=== PATIENT | male | born 1955 | race Caucasian/White ===

== ENCOUNTER 2016-12-05 10:39 | Inpatient (IN) | payer OTHER ==
[~2016-12-05] VITALS: Ht 170.2 cm; Wt 85.0 kg
[~2016-12-05 10:39] MED LIST: no home meds
[2016-12-05] MEDS ORDERED: SOD CHLORIDE 0.9% 1,000 ML IV STA (11:30)
[2016-12-05] MEDS ORDERED: ASPIRIN 325 MG TAB PO STA (11:30)
[2016-12-05] MEDS ORDERED: IBUP-1542 PO (11:34)
[2016-12-05] MEDS ORDERED: OMEP40CA6 PO (11:34)
[2016-12-05 12:26] LABS: ADD SCAN DIFF NO
[2016-12-05 12:40] LABS: BASOPHIL # 0.1 10^3/ul (0.0-0.1); BASOPHILS % 0.9 % (0.0-2.0); EOSINOPHILS # 0.1 10^3/ul (0.0-0.5); EOSINOPHILS % 2.2 % (0.0-7.0); HEMATOCRIT 45.2 % (42.0-52.0); LYMPHOCYTES # 1.9 10^3/ul (0.8-2.9); LYMPHOCYTES % 34.9 % (15.0-51.0); MEAN CORPUSCULAR HEMOGLOBIN 29.1 pg (29.0-33.0); MEAN CORPUSCULAR HGB CONC 33.2 g/dl (32.0-37.0); MEAN CORPUSCULAR VOLUME 87.6 fl (82.0-101.0); MEAN PLATELET VOLUME 11.8 fl (7.4-10.4); MONOCYTE # 0.5 10^3/ul (0.3-0.9); MONOCYTES % 8.3 % (0.0-11.0); NEUTROPHIL # 2.9 10^3/ul (1.6-7.5); NEUTROPHILS % 53.1 % (39.0-77.0); PLATELET COUNT 167 10^3/UL (140-415); RED BLOOD COUNT 5.16 10^6/ul (4.70-6.10); RED CELL DISTRIBUTION WIDTH 13.1 % (11.5-14.5); WHITE BLOOD COUNT 5.4 10^3/ul (4.8-10.8)
[2016-12-05 12:43] LABS: ALBUMIN 4.2 g/dl (3.3-4.9); INR 0.84; PROTIME 11.5 Sec (12.2-14.2); PT RATIO 0.9
[2016-12-05 12:44] LABS: CHLORIDE 104 mmol/L (97-110); PARTIAL THROMBOPLASTIN TIME 24.9 Sec (25.0-35.0); POTASSIUM 4.7 mmol/L (3.5-5.1); SODIUM 144 mmol/L (135-144)
[2016-12-05 12:46] LABS: ANION GAP 19 (8-16); ASPARTATE AMINO TRANSFERASE 36 IU/L (15-46); BILIRUBIN,INDIRECT 1.1 mg/dl (0-1.1); BILIRUBIN,TOTAL 1.1 mg/dl (0.2-1.3); CARBON DIOXIDE 26 mmol/L (21-31); CREATININE 0.77 mg/dl (0.61-1.24); D-DIMER 513.11 ng/ml (<460)
[2016-12-05 12:47] LABS: ALANINE AMINOTRANSFERASE 45 IU/L (13-69); ALBUMIN/GLOBULIN RATIO 1.05; ALKALINE PHOSPHATASE 92 IU/L (42-121); BLOOD UREA NITROGEN 15 mg/dl (7-20); CALCIUM 9.5 mg/dl (8.4-10.2); CREATINE KINASE 105 IU/L (23-200); GLUCOSE 103 mg/dl (70-220); TOTAL PROTEIN 8.2 g/dl (6.1-8.1)
--- NOTE | 2016-12-05 12:48 | ERA ---
ER Documentation Chief Complaint Date/Time DATE: 12/05/16 TIME: 12:37 Chief Complaint has chest discomfort and left arm pain numbness HPI This is a 60-year-old male with no past medical history that presents to the emergency department complaining of 2 weeks of mild shortness of breath and chest discomfort. Indicates that the chest pain is a pressure-like sensation that will last for several minutes and then spontaneously resolved. Yesterday evening he stated that the chest pain worsened to 10 out of 10 in intensity with radiation to his left arm. The pain lasted for roughly 30 minutes and improved however upon awakening this morning he had recurrence of the chest discomfort. He had associated symptoms of nausea but no diaphoresis hemoptysis or hematemesis. His mother had a myocardial infarction at roughly 40 years of age. He denies any swelling of his lower extremity. He states the shortness of breath is present with exertion. He denies any recent travel or prolonged immobilization. ROS All systems reviewed and are negative except as per history of present illness. Medications Home Meds Reported Medications Ibuprofen* (Motrin*) 600 Mg Tab, 600 MG PO Q8H Y for PAIN, TAB 12/05/16 Omeprazole* (Omeprazole*) 40 Mg Capsule.dr, 40 MG PO DAILY, #30 CAP 12/05/16 Discontinued Reported Medications [no home meds] No Conflict Check 09/14/14 Allergies Allergies: Coded Allergies: No Known Allergy (Unverified , 12/05/16) PMhx/Soc Medical and Surgical Hx: pt denies Medical Hx History of Surgery: Yes (HERNIA) Anesthesia Reaction: No Hx Neurological Disorder: No Hx Respiratory Disorders: No Hx Cardiac Disorders: No Hx Psychiatric Problems: No Hx Miscellaneous Medical Probl: Yes (GERD) Hx Alcohol Use: No Hx Substance Use: No Hx Tobacco Use: No Smoking Status: Former smoker Physical Exam Vitals Vital Signs Date Time Temp Pulse Resp B/P Pulse Ox O2 Delivery O2 Flow Rate FiO2 12/05/16 11:45 98.5 54 15 142/102 Room Air 12/05/16 10:47 97.5 66 18 181/87 98 Physical Exam Constitutional:Well-developed. Well-nourished. HEENT:Normocephalic. Atraumatic.Pupils were equal round reactive to light. Moist mucous membranes.No tonsillar exudates. Neck: No nuchal rigidity. No lymphadenopathy. No posterior cervical spine tenderness or step-offs. Respiratory: Not using accessory muscles of respiration.Lungs were clear to auscultation bilaterally. No rhonchi. No rales. No wheezing. Cardiovascular: Regular rate regular rhythm.No murmurs. No rubs were appreciated.S1, S2 normal. Distal pulses are palpable 2+ bilaterally. GI: Abdomen was soft. Nontender. Non Distended. No pulsatile abdominal masses or bruits. No rebound. No guarding. Bowel sounds were present and normal. Muscle skeletal: Full range of motion of both the upper and lower extremities bilaterally.Normal muscle tone.No assymetrical calf tenderness or swelling. Skin: No petechia, no purpura. No lesions on the palms or the soles of the feet. No maculopapular rash. NEURO: Patient was alert, awake, orientated x3.No facial droop. Gait observed and normal with no ataxia.Speech had regular rate and rhythm. No focal neurological deficits. Result Diagram: 12/05/16 1145 12/05/16 1145 Results 24 hrs Laboratory Tests Test 12/05/16 11:45 Activated Partial Thromboplast Time 24.9Sec Alanine Aminotransferase (ALT/SGPT) 45IU/L Albumin 4.2g/dl Albumin/Globulin Ratio 1.05 Alkaline Phosphatase 92IU/L Anion Gap 19 Aspartate Amino Transf (AST/SGOT) 36IU/L B-Type Natriuretic Peptide Pending Basophils # 0.110^3/ul Basophils % 0.9% Blood Urea Nitrogen 15mg/dl Calcium Level 9.5mg/dl Carbon Dioxide Level 26mmol/L Chloride Level 104mmol/L Creatine Kinase 105IU/L Creatine Kinase Index Pending Creatinine 0.77mg/dl Creatinine Kinase MB (Mass) Pending D-Dimer 513.11ng/ml D-Dimer Comment Direct Bilirubin 0.00mg/dl Eosinophils # 0.110^3/ul Eosinophils % 2.2% Globulin 4.00g/dl Glucose Level 103mg/dl Hematocrit 45.2% Hemoglobin 15.0g/dl INR International Normalized Ratio 0.84 Indirect Bilirubin 1.1mg/dl Lipase 87U/L Lymphocytes # 1.910^3/ul Lymphocytes % 34.9% Mean Corpuscular Hemoglobin 29.1pg Mean Corpuscular Hemoglobin Concent 33.2g/dl Mean Corpuscular Volume 87.6fl Mean Platelet Volume 11.8fl Monocytes # 0.510^3/ul Monocytes % 8.3% Neutrophils # 2.910^3/ul Neutrophils % 53.1% Nucleated Red Blood Cells # 0.010^3/ul Nucleated Red Blood Cells % 0.0/100WBC Platelet Count 49028^3/UL Potassium Level 4.7mmol/L Prothrombin Time 11.5Sec Prothrombin Time Ratio 0.9 Red Blood Count 5.1610^6/ul Red Cell Distribution Width 13.1% Sodium Level 144mmol/L Total Bilirubin 1.1mg/dl Total Protein 8.2g/dl Troponin I Pending White Blood Count 5.410^3/ul Current Medications Medications (Trade) Dose Ordered Sig/Paula Route PRN Reason Start Time Stop Time Status Last Admin Dose Admin Sodium Chloride (NS) 1,000 ml @ 1,000 mls/hr Q1H STAT IV 12/05/16 11:30 12/05/16 12:29 DC 12/05/16 11:52 Aspirin (Aspirin) 325 mg ONCE STAT PO 12/05/16 11:30 12/05/16 11:31 DC 12/05/16 11:52 Procedures/MDM The patient presented to the emergency department with chest pain. My clinical evaluation and workup was to distinguish minor causes of chest pain from acute life threatening conditions such as myocardial infarction, pulmonary embolism, aortic dissection, esophageal rupture, cardiac tamponade. The patient was placed on a court monitor and continuous pulse oximetry. IV access established by nursing staff. 12 Lead EKG tracing ordered and reviewed by myself showed: Sinus tachycardia 58 bpm and no arrhythmia. MO interval normal. QRS duration normal. No ST segment elevation No ST segment depression. No changes consistent with acute ischemia. The patient was a low pretest probability according to the well's criteria for pulmonary embolism. Therefore I obtained a d-dimer which was elevated. At this time I did obtain a CT scan of the chest to rule out pulmonary embolism which was negative. The patient will be admitted in serious condition to obtain serial 12-lead EKG tracings and cardiac set of enzymes given that he has a strong family history for coronary artery disease. Departure Diagnosis: Primary Impression: Chest pain Qualified Code: R07.9 - Chest pain, unspecified type Additional Impression: SOB (shortness of breath) on exertion Condition: Serious ALBERTO PINEDA Dec 05, 2016 12:47
--- NOTE | 2016-12-05 12:52 | RADRPT ---
PROCEDURE: XR Chest. CLINICAL INDICATION: Chest pain TECHNIQUE: Chest AP portable. COMPARISON: No comparison available. FINDINGS: The mediastinal structures are unremarkable. The heart is normal in size and configuration. The pu lmonary vascularity is normal. There are low lung volumes. There is mild bibasilar subsegmental at electasis. No consolidation is identified. The pleural spaces are unremarkable. The axial skeleto n is unremarkable. IMPRESSION: Low lung volumes. Mild bibasilar subsegmental atelectasis RPTAT: HGDB .Von Santos MD, MD Date Time Electronically viewed and signed by .Von Santos MD, on 12/05/2016 12:52 .B/
[2016-12-05 12:56] LABS: B-TYPE NATRIURETIC PEPTIDE 38 PG/ML (0-125)
[2016-12-05 13:02] LABS: TROPONIN-I < 0.012 ng/ml (0.00-0.12)
[2016-12-05] MEDS ORDERED: IOHEXOL 100 ML ONE (13:12)
[2016-12-05] MEDS ORDERED: SOD CHLORIDE 0.9% 100 ML ONE (13:12)
--- NOTE | 2016-12-05 13:39 | RADRPT ---
PROCEDURE: CTA Chest and pulmonary angiogram. CLINICAL INDICATION: Chest pain and shortness of breath. Left shoulder pain. TECHNIQUE: CT scan of the chest and CT pulmonary angiogram was performed on a multidetector high-r Realmolution CT scanner. High-resolution thin slice coronal and sagittal imaging was obtained from the axial source images. 3-D volumetric rendered post processing was performed as well. The patient w as examined following the uncomplicated intravenous administration of 100 cc of Omnipaque-350. The i mages were reviewed on a PACS workstation. The total exam CTDI equals 18.70, and 12.55 and the total exam DLP equals 424.20 mGy-cm. One or more of the following dose reduction techniques were used: Automated exposure control. Adjustment of the mA and/or kV according to patient size. Use of iterative reconstruction technique. COMPARISON: No prior studies are available for comparison. FINDINGS: CT chest: The lungs are clear. No focal opacification, effusion, pneumothorax, edema, or nodules are seen. T he central tracheobronchial tree is clear. The mediastinum is unremarkable without evidence for mass or lymphadenopathy. The vascular structur es of the mediastinum are normal in course and caliber. The heart size is normal without pericardia l thickening or effusion. The axillary, subpectoral, and supraclavicular regions are unremarkable. Scattered coronary artery calcifications are noted. Imaging obtained through the upper abdomen is is remarkable for small hiatal hernia.. The adrenal g lands are symmetrically normal. The surrounding chest wall is unremarkable. The osseous structures are remarkable for degenerative spondylosis of the spine. CT pulmonary angiogram: No thrombus, clot, filling defect, or pulmonary web is identified. The pulmonary arteries are trixie l in caliber and morphology. No filling defect is present to suggest pulmonary embolism. There is no evidence for pulmonary arterial hypertension. IMPRESSION: 1. No evidence for pulmonary embolism. 2. Normal caliber thoracic aorta with no aortic dissection. 3. Scattered coronary artery calcifications. 4. No acute infiltrates. 5. Small hiatal hernia. RPTAT: BB .Angle Arce MD, MD Date Time Electronically viewed and signed by .Angle Arce MD, on 12/05/2016 13:39 .O/
[2016-12-05 14:01] LABS: CK-MB 1.67 ng/ml (0.0-2.4)
[2016-12-05] MEDS ORDERED: morphine 2 MG INJ IV STA (14:40)
[2016-12-05] MEDS ORDERED: ONDANSETRON 4 MG INJ IV STA (14:40)
[2016-12-05] MEDS ORDERED: KETOROLAC 30 MG INJ IV STA (14:40)
[2016-12-05 17:40] VITALS: TEMP 98.5
[2016-12-05] MEDS ORDERED: ONDANSETRON 4 MG INJ IV PRN (19:30)
[2016-12-05] MEDS ORDERED: ACETAMINOPHEN 325 MG TAB PO PRN (19:30)
[2016-12-05 20:56] VITALS: Ht 170.2 cm; Wt 85.0 kg
[2016-12-05 21:22] VITALS: PULSE 40
[2016-12-05 23:07] VITALS: PULSE 40
[2016-12-06] VITALS (10 sets, daily range): BP systolic 137–149; BP diastolic 79–84; PULSE 53–63; RESP 16–18
[2016-12-06] MEDS ORDERED: ONDANSETRON 4 MG INJ IV PRN (01:30)
[2016-12-06] MEDS ORDERED: NITROGLYCERIN (SL) 0.4 MG TAB SL PRN (01:30)
[2016-12-06] MEDS ORDERED: morphine 4 MG/ML VIAL IV PRN (01:30)
[2016-12-06] MEDS ORDERED: hydrALAzine 20 MG INJ IV PRN (01:30)
[2016-12-06 07:24] LABS: ADD SCAN DIFF NO
[2016-12-06 07:31] LABS: BASOPHILS % 0.7 % (0.0-2.0); EOSINOPHILS # 0.2 10^3/ul (0.0-0.5); EOSINOPHILS % 2.8 % (0.0-7.0); HEMATOCRIT 41.2 % (42.0-52.0); HEMOGLOBIN 13.6 g/dl (14.0-18.0); LYMPHOCYTES # 1.9 10^3/ul (0.8-2.9); LYMPHOCYTES % 31.6 % (15.0-51.0); MEAN CORPUSCULAR HEMOGLOBIN 29.3 pg (29.0-33.0); MEAN CORPUSCULAR VOLUME 88.8 fl (82.0-101.0); MEAN PLATELET VOLUME 10.4 fl (7.4-10.4); MONOCYTE # 0.6 10^3/ul (0.3-0.9); MONOCYTES % 9.4 % (0.0-11.0); NEUTROPHIL # 3.4 10^3/ul (1.6-7.5); NEUTROPHILS % 55.2 % (39.0-77.0); PLATELET COUNT 253 10^3/UL (140-415); RED BLOOD COUNT 4.64 10^6/ul (4.70-6.10); RED CELL DISTRIBUTION WIDTH 13.2 % (11.5-14.5); WHITE BLOOD COUNT 6.1 10^3/ul (4.8-10.8)
[2016-12-06 07:39] LABS: POTASSIUM 4.6 mmol/L (3.5-5.1)
[2016-12-06 07:41] LABS: CREATININE 0.97 mg/dl (0.61-1.24)
[2016-12-06 07:42] LABS: CALCIUM 9.4 mg/dl (8.4-10.2)
[2016-12-06 07:43] LABS: CHOL/HDL RATIO 5.1 RATIO; MAGNESIUM 1.9 mg/dl (1.7-2.5)
[2016-12-06 08:12] LABS: THYROID STIMULATING HORMONE 1.6 MIU/L (0.465-4.680)
[2016-12-06] MEDS ORDERED: HEPARIN 5,000 UNIT/0.5 ML SYG SC SCH (09:00)
[2016-12-06] MEDS ORDERED: ASPIRIN 81 MG TAB PO SCH (09:00)
[2016-12-06] MEDS ORDERED: FAMOTIDINE 20 MG TAB PO SCH (09:00)
[2016-12-06] MEDS ORDERED: LISI-313 PO (17:08)
[2016-12-06] MEDS ORDERED: ASPI81TA3 PO (17:08)
--- NOTE | 2016-12-06 17:10 | PDOCDIS ---
Discharge Instructions DIAGNOSIS Discharge Diagnosis: 1. chest pain. acs ruled out 2. hypertension CONDITION Patient Condition: Stable HOME CARE INSTRUCTIONS: Diet Instructions: Low Fat /Cholesterol FOLLOW UP/APPOINTMENTS Appointments 1. Follow-up with your primary care provider within a week OTHER ORDERS: Other Orders: 1. Call 911 if you have worsening chest pain or shortness of breath FRANCESCO DAVIS Dec 06, 2016 17:10
== END 2016-12-06 18:40 | disposition home or self-care (01) | DRG 313 ==
LOC: E/R 10:39 → MS4 19:28
PROVIDERS: ADMIT Internal Medicine; ATTEND Internal Medicine
DX: R07.9 Chest pain, unspecified (principal); I10 Essential (primary) hypertension; K21.9 Gastro-esophageal reflux disease without esophagitis; Z87.891 Personal history of nicotine dependence
CPT/HCPCS: 36415; 71010; 71275; 80048; 80053; 80061; 82550; 82553; 83036; 83690; 83735; 83880; 84100; 84443; 84484; 85025; 85378; 85610; 85730; 93005; 96374; 96375; J1885; J2270; J2405; J7030; Q9967

== ENCOUNTER 2017-07-08 18:18 | Emergency (ER) | payer OTHER ==
[~2017-07-08] VITALS: Ht 167.6 cm; Wt 84.5 kg
[~2017-07-08 18:18] MED LIST changes: +ASPI81TA3 PO; +IBUP-1542 PO; +LISI-313 PO; +OMEP40CA6 PO; -no home meds
[2017-07-08 18:27] VITALS: Ht 167.6 cm; Wt 84.5 kg
[2017-07-08] MEDS ORDERED: HYDR-3011 PO (20:33)
[2017-07-08] MEDS ORDERED: CEPH-443 PO (20:33)
--- NOTE | 2017-07-08 20:39 | ERD ---
ER Documentation Chief Complaint Date/Time DATE: 07/08/17 TIME: 20:36 Chief Complaint "insect bite" last saturday night on CURTIS legs/merrill HPI 61-year-old male presents to emergency department for multiple rash in lower extremities, most likely was bitten by insects, has dogs and cats at home. Patient is complaining of itching, no is complaining of burning pain, 4/10 scale , as was upon touching the area. Patient denies any fever or chills. Patient denies any numbness or tingling. ROS All systems reviewed and are negative except as per history of present illness. Medications Home Meds Active Scripts Hydroxyzine Hcl* (Hydroxyzine Hcl*) 25 Mg Tablet, 25 MG PO Q8H Y for ITCHING, # 30 TAB Prov:NISH ENGLE NP 07/08/17 Cephalexin* (Keflex*) 500 Mg Capsule, 500 MG PO QID for 10 Days, CAP Prov:NISH ENGLE NP 07/08/17 Lisinopril* (Lisinopril*) 5 Mg Tablet, 5 MG PO DAILY, #30 TAB Prov:FRANCESCO DAVIS 12/06/16 Aspirin (Aspirin) 81 Mg Chew, 81 MG PO DAILY for 30 Days, TAB Prov:FRANCESCO DAVIS 12/06/16 Reported Medications Ibuprofen* (Motrin*) 600 Mg Tab, 600 MG PO Q8H Y for PAIN, TAB 12/05/16 Omeprazole* (Omeprazole*) 40 Mg Capsule.dr, 40 MG PO DAILY, #30 CAP 12/05/16 Allergies Allergies: Coded Allergies: No Known Allergy (Unverified , 12/05/16) PMhx/Soc History of Surgery: Yes (hernia repair 1995) Anesthesia Reaction: No Hx Neurological Disorder: No Hx Respiratory Disorders: No Hx Cardiac Disorders: No Hx Psychiatric Problems: No Hx Miscellaneous Medical Probl: No Hx Alcohol Use: No Hx Substance Use: No Hx Tobacco Use: No Smoking Status: Never smoker FmHx Family History: No coronary disease, No diabetes, No other Physical Exam Vitals Vital Signs Date Time Temp Pulse Resp B/P Pulse Ox O2 Delivery O2 Flow Rate FiO2 07/08/17 18:27 98.3 67 20 159/82 98 Physical Exam GENERAL: The patient is well developed and appropriate for usual state of health, in no apparent distress. CHEST: Clear to auscultation bilaterally. There are no rales, wheezes or rhonchi. HEART: Regular rate and rhythm. No murmurs, clicks, rubs or gallops. No S3 or S4. ABDOMEN: Soft, nontender and nondistended. Good bowel sounds. No rebound or guarding. No gross peritonitis. No gross organomegaly or masses. No Francisco sign or McBurney point tenderness. BACK: No midline or flank tenderness. EXTREMITIES: Equal pulses bilaterally. There is no peripheral clubbing, cyanosis or edema. No focal swelling or erythema. Full range of motion. Grossly neurovascularly intact. NEURO: Alert and oriented. Cranial nerves 2-12 intact. Motor strength in all 4 extremities with 5/5 strength. Sensation grossly intact. Normal speech and gait. SKIN: Patient macular rash noted in lower extremities, no fluctuance noted. There is no apparent ecchymoses or petechia. The skin is warm and dry. HEMATOLOGIC AND LYMPHATIC: There is no evidence of excessive bruising or lymphedema. No gross cervical, axillary, or inguinal lymphadenopathy. Procedures/MDM Medical decision making: Patient symptoms with neck is consistent with insect bites, these are infected. No symptoms of any abscesses. No symptoms of any neurovascular compromise. No symptoms of any coagulopathies. No symptoms of sepsis. Prescription was given for Keflex, hydroxyzine, is advised to follow- up with primary care doctor in 2-3 days for reevaluation of symptoms. Patient is advised to return to emergency department for any worsening symptoms. Disposition: Home. Stable. Departure Diagnosis: Primary Impression: Infected insect bites of multiple sites Condition: Stable Patient Instructions: Insect Sting/Bite, Infected NISH ENGLE NP Jul 08, 2017 20:39
== END 2017-07-08 20:44 | disposition home or self-care (01) ==
LOC: FTE 18:18
DX: S80.861A Insect bite (nonvenomous), right lower leg, initial encounter (principal); S80.862A Insect bite (nonvenomous), left lower leg, initial encounter; L08.9 Local infection of the skin and subcutaneous tissue, unspecified; W57.XXXA Bitten or stung by nonvenomous insect and other nonvenomous arthropods, initial encounter; Y92.9 Unspecified place or not applicable; Z79.82 Long term (current) use of aspirin
CPT/HCPCS: 99284

== ENCOUNTER 2017-07-30 10:15 | Emergency (ER) | payer OTHER ==
[~2017-07-30] VITALS: Ht 170.2 cm; Wt 83.0 kg
[~2017-07-30 10:15] MED LIST changes: +CEPH-443 PO; +HYDR-3011 PO
[2017-07-30 10:17] VITALS: Ht 170.2 cm; Wt 83.0 kg
[2017-07-30] MEDS ORDERED: ACETAMINOPHEN 325 MG TAB PO ONE (11:00)
--- NOTE | 2017-07-30 12:47 | RADRPT ---
PROCEDURE: XR Knee. CLINICAL INDICATION: Pain TECHNIQUE: AP, lateral and oblique view of the right knee were obtained. The images reviewed on a PACS workstation. COMPARISON: 09/14/2014 FINDINGS: Three views of the right knee demonstrate no displaced fracture. No gross malalignment is seen. The re is stable moderate degenerative change of the lateral joint compartment.. No patellofemoral disea se is identified. As before there is a bipartite patella. Trace knee joint effusion is seen.. The b ones normally mineralized. The soft tissues are unremarkable. IMPRESSION: No acute fracture dislocation Stable moderate degree lateral joint compartment osteoarthritis Trace knee joint effusion Bipartite patella RPTAT: HH .Dante Montes MD, MD Date Time Electronically viewed and signed by .Dante Montes MD, on 07/30/2017 12:47 .W/
[2017-07-30] MEDS ORDERED: ACET500C5 PO (13:13)
[2017-07-30 13:36] VITALS: BP 127/65; PULSE 63; RESP 18; TEMP 98.2
--- NOTE | 2017-07-30 16:31 | ERD ---
ER Documentation Chief Complaint Chief Complaint RIGHT KNEE PAIN/INJURY HPI 61-year-old male patient with a past medical history of acid reflux and hyperlipidemia presents to the ED complaining of a right knee that occurred intermittently for 1 week. States that he does heavy lifting at work. Reports that he was lifting 50 pounds. States that he has had right knee pain for many years and has been getting physical therapy, steroid injections and taking ibuprofen however the heavy lifting recently has made his right knee pain worse. Denies any weakness, numbness or tingling, nausea, vomiting, fever, chills, increase swelling or redness. ROS All systems reviewed and are negative except as per history of present illness. Medications Home Meds Active Scripts Acetaminophen* (Tylophen*) 500 Mg Capsule, 1 CAP PO Q6H Y for PAIN AND OR ELEVATED TEMP, #20 CAP Prov:HALIE LEIVA PA-C 07/30/17 Hydroxyzine Hcl* (Hydroxyzine Hcl*) 25 Mg Tablet, 25 MG PO Q8H Y for ITCHING, # 30 TAB Prov:NISH ENGLE NP 07/08/17 Cephalexin* (Keflex*) 500 Mg Capsule, 500 MG PO QID for 10 Days, CAP Prov:NISH ENGLE NP 07/08/17 Lisinopril* (Lisinopril*) 5 Mg Tablet, 5 MG PO DAILY, #30 TAB Prov:FRANCESCO DAVIS 12/06/16 Aspirin (Aspirin) 81 Mg Chew, 81 MG PO DAILY for 30 Days, TAB Prov:FRANCESCO DAVIS 12/06/16 Reported Medications Ibuprofen* (Motrin*) 600 Mg Tab, 600 MG PO Q8H Y for PAIN, TAB 12/05/16 Omeprazole* (Omeprazole*) 40 Mg Capsule.dr, 40 MG PO DAILY, #30 CAP 12/05/16 Allergies Allergies: Coded Allergies: No Known Allergy (Unverified , 12/05/16) PMhx/Soc History of Surgery: Yes (hernia repair 1995) Anesthesia Reaction: No Hx Neurological Disorder: No Hx Respiratory Disorders: No Hx Cardiac Disorders: Yes (HTN, HIGH CHOLESTEROL) Hx Psychiatric Problems: No Hx Miscellaneous Medical Probl: No Hx Alcohol Use: No Hx Substance Use: No Hx Tobacco Use: No Physical Exam Vitals Vital Signs Date Time Temp Pulse Resp B/P Pulse Ox O2 Delivery O2 Flow Rate FiO2 07/30/17 13:36 98.2 63 18 127/65 99 Room Air 07/30/17 10: 98.2 72 19 161/74 98 Physical Exam Const: [id number], well-nourished. In no acute distress. Head: Atraumatic, normocephalic Eyes: Normal Conjunctiva without injection ENT: Normal external ear, nose and mouth. Neck: Full range of motion. No meningismus. Resp: Clear to auscultation bilaterally. No wheezing, rhonchi, rales, or crackles. No accessory muscle use. No retractions. Cardio: Regular rate and rhythm, no murmurs Skin: No petechiae or rashes Back: No midline tenderness. No CVA tenderness. Ext: No cyanosis, or edema. Cap refill less than 2 seconds. Distal pulses intact bilaterally. Palpation of the lateral aspect of patient's right knee with no deformities. No erythema or edema. Patient was able to flex and extend his right knee. Neur: Awake and alert. Normal gait and coordination. Muscle strength 5/5. Sensation intact bilaterally. Psych: Normal Mood and Affect Results 24 hrs Current Medications Medications (Trade) Dose Ordered Sig/Paula Route PRN Reason Start Time Stop Time Status Last Admin Dose Admin Acetaminophen (Tylenol Tab) 650 mg ONCE ONCE PO 07/30/17 11:00 07/30/17 11:01 DC 07/30/17 11:02 Procedures/MDM 61-year-old male patient with no significant past medical history presents to the ED complaining of right knee pain. Patient is afebrile and nontoxic- appearing. Patient has normal vital signs. A right knee x-ray was ordered to further evaluate patient. She was given Tylenol here in the ED with improvement of his symptoms. PROCEDURE: XR Knee. CLINICAL INDICATION: Pain TECHNIQUE: AP, lateral and oblique view of the right knee were obtained. The images reviewed on a PACS workstation. COMPARISON: 09/14/2014 FINDINGS: Three views of the right knee demonstrate no displaced fracture. No gross malalignment is seen. There is stable moderate degenerative change of the lateral joint compartment.. No patellofemoral disease is identified. As before there is a bipartite patella. Trace knee joint effusion is seen.. The bones normally mineralized. The soft tissues are unremarkable. IMPRESSION: No acute fracture dislocation Stable moderate degree lateral joint compartment osteoarthritis Trace knee joint effusion Bipartite patella Patient is placed in a right knee immobilizer. Crutches were given to patient to help with ambulation. Splint Assessment: Neurovascularly intact pre and post splint placement with good fit. She has right knee osteoarthritis and trace knee joint effusion. Patient's extremity symptoms have stabilized while they have been evaluated in the department and are appropriate for outpatient follow up. No evidence of fractures, dislocations, compartment syndrome, neurologic injury, vascular injury, open joint, open fracture, tendon laceration, septic arthritis, osteomyelitis, DVT, foreign body, or other emergent conditions. Discharge medications: Tylenol Follow up with primary care physician in 1-2 days felt an orthopedic physician for further evaluation with a MRI. Instructed patient to return to the ED sooner for any worsening symptoms. Patient's questions were answered. Patient understood and agreed with discharge plan. Patient discharged stable. Departure Diagnosis: Primary Impression: Knee pain Chronicity: acute Laterality: right Qualified Code: M25.561 - Acute pain of right knee Condition: Stable Patient Instructions: Reducing Knee Pain and Swelling, Osteoarthritis: Managing Pain, Osteoarthritis: Tips for Daily Living, Knee Pain, Uncertain Cause Referrals: COMMUNITY CLINICS YOU HAVE RECEIVED A MEDICAL SCREENING EXAM AND THE RESULTS INDICATE THAT YOU DO NOT HAVE A CONDITION THAT REQUIRES URGENT TREATMENT IN THE EMERGENCY DEPARTMENT. FURTHER EVALUATION AND TREATMENT OF YOUR CONDITION CAN WAIT UNTIL YOU ARE SEEN IN YOUR DOCTORS OFFICE WITHIN THE NEXT 1-2 DAYS. IT IS YOUR RESPONSIBILITY TO MAKE AN APPOINTMENT FOR FOLOW-UP CARE. IF YOU HAVE A PRIMARY DOCTOR --you should call your primary doctor and schedule an appointment IF YOU DO NOT HAVE A PRIMARY DOCTOR YOU CAN CALL OUR PHYSICIAN REFERRAL HOTLINE AT IF YOU CAN NOT AFFORD TO SEE A PHYSICIAN YOU CAN CHOSE FROM THE FOLLOWING [facility], [facility] CLINICS [facility] [address] [facility] [address] [facility] [address] [facility] [address] [facility] [address] [facility]. [facility]. [address] [facility]. [facility] YOU HAVE RECEIVED A MEDICAL SCREENING EXAM AND THE RESULTS INDICATE THAT YOU DO NOT HAVE A CONDITION THAT REQUIRES URGENT TREATMENT IN THE EMERGENCY DEPARTMENT. FURTHER EVALUATION AND TREATMENT OF YOUR CONDITION CAN WAIT UNTIL YOU ARE SEEN IN YOUR DOCTORS OFFICE WITHIN THE NEXT 1-2 DAYS. IT IS YOUR RESPONSIBILITY TO MAKE AN APPOINTMENT FOR FOLOW-UP CARE. IF YOU HAVE A PRIMARY DOCTOR --you should call your primary doctor and schedule and appointment IF YOU DO NOT HAVE A PRIMARY DOCTOR YOU CAN CALL OUR PHYSICIAN REFERRAL HOTLINE AT . IF YOU CAN NOT AFFORD TO SEE A PHYSICIAN YOU CAN CHOSE FROM THE FOLLOWING [facility] INSTITUTIONS: [facility] [address] [place] [address] [facility] [address] [place] [address] [facility] [address] [place] [address] [facility] URGENT CARE/SPECIALTIES Additional Instructions: Llame al doctor JILL y jena glenroy SHANAE PARA DENTRO DE 1-2 RUIZ para glenroy remisi n a un mdico ortopdico para eldridge evaluacin y tratamiento. Dgale a la secretaria que nosotros le instruimos hacer esta shanae.Avise o llame si eldridge condicin se empeora antes de la shanae. Regresa aqui si peor o no mejor. HALIE LEIVA PA-C Jul 30, 2017 16:31 HALIE LEIVA PA-C Jul 30, 2017 16:31
== END 2017-07-30 13:37 | disposition home or self-care (01) ==
LOC: FTE 10:15
DX: M25.561 Pain in right knee (principal); I10 Essential (primary) hypertension; Z79.82 Long term (current) use of aspirin
CPT/HCPCS: 29505; 73562; Z7502; Z7610